=== PATIENT | male | born 1990 | race Caucasian/White ===

== ENCOUNTER 2017-07-16 01:02 | Emergency (ER) | payer BC, OTHER ==
[~2017-07-16] VITALS: Ht 185.4 cm; Wt 86.2 kg
--- NOTE | ~2017-07-16 | EKG ---
[address] [address] ELECTROCARDIOGRAM REPORT Name: ASHLEY TERRELL Room #: DEP Erica#: [id number] Admission: 07/16/17 Attend Phys: Discharge: 07/16/17 Date of : 86 Report #: [id number] THIS REPORT FOR: //name// [facility] ED Test Date: 2017-07-16 Test Time: 01:14:26 Pat Name: ASHLEY TERRELL Department: Room: Gender: Cost Manager: RORO : 1990 Requested By: Morena Olvera Order Number: [id number] MD: Hao Rodas Measurements Intervals [place] Rate: 75 P: 74 [place]: 142 QRS: 69 QRSD: 103 T: 30 QT: 380 QTc: 425 Interpretive Statements Sinus rhythm Normal No previous ECG available for comparison Electronically Signed On 07-16-2017 8:45:19 [employer]AVA DEVELOPMENT MANAGER by Hao Rodas [email or web address] <ELECTRONICALLY SIGNED> By: Hao Rodas MD, [facility] 07/16/17 0845 0114 0114 Hao Rodas MD, FACC /EPI
[2017-07-16] MEDS ORDERED: LEXAPRO 10 MG T10 M1 PO (01:24)
[2017-07-16] MEDS ORDERED: ABILIFY 5 MG TAB5 M1 PO (01:24)
[2017-07-16 02:08] LABS: ABSOLUTE NEUTROPHILS 4.3 thou/uL (1.4-8.2); BASOPHILS 0.8 % (0.0-2.0); EOSINOPHILS 2.8 % (0.0-3.0); HEMATOCRIT 45.4 % (42.0-52.0); HEMOGLOBIN 15.4 gm/dL (14.0-18.0); LYMPHOCYTES 43.4 % (24.0-44.0); MCH 28.7 pg (26.0-34.0); MCV 84.3 fL (80.0-100.0); MONOCYTES 10.6 % (1.0-8.0); PLATELET COUNT 287 thou/uL (150-400); POLYS 42.4 % (36.0-66.0); RBC 5.38 mil/uL (4.50-6.00); RDW 13.2 % (10.5-14.5); WBC 10.2 thou/uL (4.0-11.0)
[2017-07-16 02:13] LABS: ANION GAP 8 mmol/L (7-16); BUN 22 mg/dL (7-18); CALCIUM 9.9 mg/dL (8.5-10.1); CHLORIDE 103 mmol/L (98-107); CO2 29 mmol/L (21-32); CREATININE 1.1 mg/dL (0.7-1.3); GLUCOSE 111 mg/dL (74-106); SODIUM 140 mmol/L (136-145)
[2017-07-16 02:21] LABS: TROPONIN-I < 0.04 ng/mL (<0.06)
[2017-07-16] MEDS ORDERED: ATIVAN0.5 MG PO (03:06)
== END 2017-07-16 03:20 | disposition home or self-care (01) ==
LOC: ER 01:02
PROVIDERS: Emergency Medicine
DX: R06.00 Dyspnea, unspecified (principal); F41.9 Anxiety disorder, unspecified; R06.02 Shortness of breath